=== PATIENT | female | born 1960 | race Hispanic/Latino ===

== ENCOUNTER 2018-03-08 11:54 | Emergency (ER) | payer SELFPAY ==
[2018-03-08 12:08] VITALS: BP 146/95
[2018-03-08] MEDS ORDERED: PERCOCET 5/325 PO ONE (12:25)
--- NOTE | 2018-03-08 12:25 | Emergency Department Report ---
ED Back Pain/Injury HPI - General Chief Complaint: Back Pain/Injury Stated Complaint: LFT HIP PAIN/TONGUE PAIN Time Seen by Provider: 03/08/18 12:13 Source: patient Limitations: No Limitations - History of Present Illness Initial Comments: Patient is a 57-year-old female who comes to the ER today requesting Percocet for her chronic hip pain. She states that her disability was denied and she has no medical doctor. Although she has amlodipine and lisinopril which she gets from the [facility]. However they were not treating her chronic pain. Had a long discussion with the patient about chronic pain and chronic pain clinic and treatment in the emergency room. I've explained to her that she needs to find another provider because he will not continue to dispense prescriptions for her Percocet. Complaint: other (chronic) Similar Symptoms Previously: Yes Place: home Consistency: intermittent Improves With: medication Worsens With: movement Associated Symptoms: denies other symptoms - Related Data Previous Rx's Medication Instructions Recorded Last Taken Type Ketorolac [Toradol] 10 mg PO Q6H PRN #20 tablet 03/08/18 Unknown Rx Nystas/Diphen/Xyl Visc/Mylanta 10 ml MM TID PRN #1 each 03/08/18 Unknown Rx [Magic Mouthwash] Oxycodone HCl/Acetaminophen 1 each PO Q8H PRN #12 tablet 03/08/18 Unknown Rx [Percocet 7.5/325 mg] Allergies Allergy/AdvReac Type Severity Reaction Status Date / Time No Known Allergies Allergy Verified 03/08/18 12:09 ED Review of Systems ROS: Stated complaint: LFT HIP PAIN/TONGUE PAIN Other details as noted in HPI Comment: All other systems reviewed and negative Constitutional: denies: chills, fever Eyes: denies: eye pain ENT: denies: throat pain Respiratory: denies: orthopnea Cardiovascular: denies: chest pain Endocrine: denies: see HPI Gastrointestinal: denies: abdominal pain Genitourinary: denies: urgency, dysuria, frequency, hematuria, discharge Musculoskeletal: as per HPI, back pain Skin: denies: rash Neurological: denies: headache Psychiatric: denies: depression Hematological/Lymphatic: denies: easy bleeding ED Past Medical Hx - Past Medical History chronic Lt hip pain ED Back Pain Physical Exam - Exam General: Vital signs noted. No distress. Alert and acting appropriately. Back/Abdomen: No Abdominal Tenderness, No Perithoracic Tenderness, No Perilumbar Tenderness, No Sacroiliac Tenderness, No Flank Tenderness, No Straight Leg Raise Pain Neuro: Yes Normal Sensation, No Motor Weakness, No Normal DTR's, No Normal Gait ED Course Vital Signs 03/08/18 12:03 Temperature 97.7 F Pulse Rate 99 H Blood Pressure 146/95 O2 Sat by Pulse 99 Oximetry ED Medical Decision Making - Medical Decision Making chronic pain===no new trauma pt in er 12-15, 01-08-18 and today DIRECTOR OF [employer] DEVELOP[employer] checked Explained to pt that we would not be able to keep giving her her percocot. referrals given pt knows no additional meds here in ER Critical care attestation.: If time is entered above; I have spent that time in minutes in the direct care of this critically ill patient, excluding procedure time. ED Disposition Clinical Impression: Chronic pain, Tongue sore Disposition: TO HOME OR SELFCARE Is pt being admited?: No Does the pt Need Aspirin: No Condition: Stable Instructions: Narcotic Abuse (ED) Referrals: SAPNA WONG MD [Staff Physician] - 3-5 Days DANIELLE DEWITT MD [Staff Physician] - 3-5 Days Ameena SIDHU MD [Staff Physician] - 3-5 Days NIYA TSANG MD [Staff Physician] - 3-5 Days REN BAUMANN MD [Staff Physician] - 3-5 Days MOUSTAPHA MULLINS MD [Staff Physician] - 3-5 Days Time of Disposition: 12:28
== END 2018-03-08 13:05 | disposition home or self-care (01) ==
LOC: ED 11:54
DX: M25.552 Pain in left hip (principal); G89.29 Other chronic pain; K13.79 Other lesions of oral mucosa
CPT/HCPCS: 99282

== ENCOUNTER 2018-05-21 12:36 | Emergency (ER) | payer OTHER ==
--- NOTE | 2018-05-21 12:47 | Emergency Department Report ---
Blank Doc - Documentation Documentation: This is a 57-year-old female that presents with left hip pain. Patient stated is chronic and is diagnosed with DJD of the hip. Denies any new injuries or trauma. Patient does have history of xrays with DJD. Stated has orthopedic but not redone xrays due to no insurance. This initial assessment/diagnostic orders/clinical plan/treatment(s) is/are subject to change based on patient's health status, clinical progression and re- assessment by fellow clinical providers in the ED. Further treatment and workup at subsequent clinical providers discretion. Patient/guardians urged not to elope from the ED as their condition may be serious if not clinically assessed and managed. Initial orders include: 1- Patient sent to [facility] for further evaluation and treatment
[2018-05-21 12:48] VITALS: BP 161/101
[2018-05-21] MEDS ORDERED: TORADOL IM ONE (14:15)
--- NOTE | 2018-05-21 14:19 | Emergency Department Report ---
ED Recheck HPI - General Chief Complaint: Extremity Problem,Nontraumatic Stated Complaint: LFT SIDE HIP PAIN Time Seen by Provider: 05/21/18 12:45 Source: patient Mode of arrival: Ambulatory Limitations: No Limitations - History of Present Illness Initial Comments: Patient is a 57-year-old female who comes to the ER for hip pain. We have seen her numerous times in the past. Her most recent visit in February personally saw her and explained to her we would not be able to refill her Percocet from the emergency room. She was given appropriate referrals at that time and has not followed up. She has no new fall or trauma. No fever. Pt ambulatory. Patient's home medications include blood pressure medicine, antidepressant medicines, restless leg medicines and her gabapentin. Patient states she is indigent and can't access the system. Discussed with pt that Dr Monahan is personal attendant and he may be able to help her get the testing she needs for her disability. MD Complaint: wound re-check - Related Data Previous Rx's Medication Instructions Recorded Last Taken Type Ketorolac [Toradol] 10 mg PO Q6H PRN #20 tablet 05/21/18 Unknown Rx Allergies Allergy/AdvReac Type Severity Reaction Status Date / Time No Known Allergies Allergy Verified 03/08/18 12:09 ED Review of Systems ROS: Stated complaint: LFT SIDE HIP PAIN Other details as noted in HPI Comment: All other systems reviewed and negative Constitutional: denies: chills Eyes: denies: as per HPI ENT: denies: throat pain Respiratory: denies: cough Cardiovascular: denies: chest pain Endocrine: denies: see HPI, flushing Gastrointestinal: denies: nausea Genitourinary: denies: dysuria Musculoskeletal: as per HPI Skin: denies: rash Neurological: denies: as per HPI Psychiatric: denies: anxiety Hematological/Lymphatic: denies: easy bleeding ED Past Medical Hx - Past Medical History Previous Medical History?: Yes Hx Hypertension: Yes Additional medical history: chronic Lt hip pain, depression, RLS - Surgical History Past Surgical History?: Yes Additional Surgical History: hysto/ csection/ tummy tuck - Social History Smoking Status: Unknown if ever smoked Substance Use Type: None - Medications Home Medications: Home Medications Medication Instructions Recorded Confirmed Last Taken Type Ketorolac [Toradol] 10 mg PO Q6H PRN #20 tablet 05/21/18 Unknown Rx ED Physical Exam - General Limitations: No Limitations General appearance: alert - Head Head exam: Present: atraumatic - Eye Eye exam: Present: normal appearance, PERRL, EOMI - ENT ENT exam: Present: mucous membranes moist - Neck Neck exam: Present: normal inspection - Respiratory Respiratory exam: Present: normal lung sounds bilaterally - Cardiovascular Cardiovascular Exam: Present: regular rate - GI/Abdominal GI/Abdominal exam: Present: soft - Rectal Rectal exam: Present: deferred - Extremities Exam Extremities exam: Present: normal inspection - Back Exam Back exam: Present: normal inspection - Neurological Exam Neurological exam: Present: alert, oriented X3, normal gait - Psychiatric Psychiatric exam: Present: normal affect, normal mood - Skin Skin exam: Present: warm, dry, intact ED Course Vital Signs 05/21/18 12:45 Temperature 97.7 F Pulse Rate 105 H Respiratory 20 Rate Blood Pressure 161/101 O2 Sat by Pulse 99 Oximetry - Reevaluation(s) Reevaluation #2: 05/21/18 14:21 HR 90 on exam. Discussed BP with pt. She is taking her meds but states she is in pain. Toradol IM given in the ER ED Recheck MDM - Core Measures Measure Exclusions: not indicated - Medical Decision Making Vital Signs 05/21/18 12:45 Temperature 97.7 F Pulse Rate 105 H Respiratory 20 Rate Blood Pressure 161/101 O2 Sat by Pulse 99 Oximetry A/C PAIN DC HOME WITH OUTPATIENT FOLLOW UP REFERRALS GIVEN Critical care attestation.: If time is entered above; I have spent that time in minutes in the direct care of this critically ill patient, excluding procedure time. ED Disposition Clinical Impression: Chronic pain, HTN (hypertension) Disposition: DC-01 TO HOME OR SELFCARE Is pt being admited?: No Does the pt Need Aspirin: No Condition: Stable Instructions: Hypertension (ED) Additional Instructions: YOU CAN GO THROUGH MEDICAL RECORDS TO GET YOUR XRAYS DONE 11/[address] MONAHAN REFERRAL BELOW FOLLOW UP WITH PRIMARY CARE FOR YOUR BLOOD PRESSURE TAKE YOUR BP MEDS DAILY Prescriptions: Ketorolac [Toradol] 10 mg PO Q6H PRN #20 tablet PRN Reason: Pain Referrals: SAPNA MONAHAN MD [Staff Physician] - 3-5 Days Time of Disposition: 14:16
== END 2018-05-21 14:27 | disposition home or self-care (01) ==
LOC: ED 12:36
DX: M25.552 Pain in left hip (principal); G89.29 Other chronic pain; I10 Essential (primary) hypertension; Z90.710 Acquired absence of both cervix and uterus
CPT/HCPCS: 96372; 99282; J1885

== ENCOUNTER 2018-07-09 15:08 | Emergency (ER) | payer SELFPAY ==
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
[2018-07-09 15:32] VITALS: BP 135/83
--- NOTE | 2018-07-09 16:51 | XRay Report ---
PROCEDURE: XR HIP 2-3V LT HISTORY: hip pain s/p fall FINDINGS: AP view of the pelvis was acquired as well as AP and lateral views of the left hip. These images demonstrate no acute fracture pelvis or left hip. There is advanced left hip osteoarthri tis with complete loss of joint space in the left hip joint. Right hip joint space appears preserved. IMPRESSION: No acute fracture is seen in the pelvis or left hip Advanced left hip osteoarthritis This document is electronically signed by Oswaldo Kincaid MD., Jul 09 2018 04:49:23 PM ET
[2018-07-09] MEDS ORDERED: TORADOL IM ONE (20:27)
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
== END 2018-07-09 21:45 | disposition home or self-care (01) ==
LOC: ED 15:08
DX: M16.12 Unilateral primary osteoarthritis, left hip (principal); I10 Essential (primary) hypertension; Z90.710 Acquired absence of both cervix and uterus
CPT/HCPCS: 73502; 96372; 99283; J1885